=== PATIENT | male | born 1995 | race Caucasian/White ===

== ENCOUNTER 2016-10-22 18:50 | Emergency (ER) | payer OTHER ==
--- NOTE | 2016-10-22 21:13 | RAD ---
INDICATION: Back pain. COMPARISON: There are no prior studies available for comparison. TECHNIQUE: Contiguous axial sections were obtained beginning lower thoracic vertebra and continuing through the sacrum. Images were reconstructed in the sagittal and coronal planes. FINDINGS: The vertebra are in normal alignment. No fracture is seen. There is no hyperdense material in the thecal sac to indicate acute hemorrhage. Degenerative changes include loss of intervertebral disc height. There is no evidence for significant disc bulge or herniation. There is no evidence for spinal canal narrowing. At L3/L4 there is mild broad-based disc protrusion that combines with mild thickening of the ligamentum flavum to cause mild spinal stenosis. At L4/L5 there is broad-based disc protrusion neck combines with facet arthropathy and thickening of the ligamentum flavum to cause central canal stenosis and mild bilateral neural foraminal stenosis. At L5/S1 there is broad-based disc protrusion eccentric towards the left that appears to extend into the neural foramen causing at least moderate left neural foraminal stenosis. IMPRESSION: There is degenerative disc disease of the lower lumbar spine as described above with the most severe appearance at L5/S1 where the intervertebral disc appears to protrude into the left neural foramen causing at least moderate neural foraminal stenosis. Superior characterization of the soft tissues of the lumbar spine can be acquired with MRI.
[2016-10-22] MEDS ORDERED: predniSONE TAB* 20 MG PO ONE ×2 (21:31)
[2016-10-22 21:42] VITALS: BP 126/68
--- NOTE | 2016-10-22 22:32 | ED ---
Nael Fonseca Erika, scribed for Imer Stafford MD on 10/22/16 at 1952 . Complex/Multi-Sys Presentation - HPI Summary HPI Summary: Patient is a 21-year-old male presenting to the ED with a CC of paresthesias. Patient reports he was at baseline today. He ate dinner, and then, around 18:45 tonight, he suddenly felt hot. He reports his skin developed a diffuse tingling sensation. Patient states he then developed a burning pain down the posterior right leg. Pain is not aggravated by palpation. Throughout, patient states he felt "shaky." He reports he has had intermittent hip and groin pain, right worse than left, for months. Pt believes this pain is due to weight lifting and squatting, and states it is worse after he works out. Patient denies abdominal pain. He denies PMHx. - History Of Current Complaint Chief Complaint: EDGeneral Time Seen by Provider: 10/22/16 19:10 Hx Obtained From: Patient Onset/Duration: Sudden Onset, Lasting Hours - 1 hour, Still Present Timing: Constant Severity Currently: Moderate Associated Signs And Symptoms: Positive: Other - Paresthesias, posterior leg pain, "shaky". Negative: Abdominal Pain - Allergies/Home Medications Allergies/Adverse Reactions: Allergies Allergy/AdvReac Type Severity Reaction Status Date / Time No Known Allergies Allergy Verified 10/22/16 18:55 PMH/Surg Hx/FS Hx/Imm Hx Endocrine/Hematology History: Denies: Hx Diabetes Cardiovascular History: Denies: Hx Hypertension Infectious Disease History: No Infectious Disease History: Denies: Traveled Outside the [place] in Last 30 Days - Family History Known Family History: Positive: Cardiac Disease, Hypertension, Diabetes - Social History Occupation: Student Lives: With Family Alcohol Use: None Hx Substance Use: Yes Substance Use Type: Reports: Marijuana Substance Use Comment - Amount & Last Used: today Hx Tobacco Use: No Smoking Status (MU): Never Smoked Tobacco Review of Systems Constitutional: Other - "Shaky" Negative: Abdominal Pain Musculoskeletal: Other - Burning pain posterior leg Positive: Myalgia - hip and groin pain Positive: Paresthesia All Other Systems Reviewed And Are Negative: Yes Physical Exam Triage Information Reviewed: Yes Vital Signs On Initial Exam: Initial Vitals Temp Pulse Resp BP Pulse Ox 98.6 F 102 20 151/87 100 10/22/16 18:52 10/22/16 18:52 10/22/16 18:52 10/22/16 18:52 10/22/16 18:52 Vital Signs Reviewed: Yes Appearance: Positive: Well-Appearing, No Pain Distress Skin: Positive: Warm, Skin Color Reflects Adequate Perfusion, Dry Head/Face: Positive: Normal Head/Face Inspection Eyes: Positive: Normal ENT: Positive: Normal ENT inspection Neck: Positive: Supple, Nontender Respiratory/Lung Sounds: Positive: Clear to Auscultation, Breath Sounds Present Cardiovascular: Positive: Tachycardia - at 102 bpm on triage Abdomen Description: Positive: Nontender, Soft Bowel Sounds: Positive: Present Musculoskeletal: Positive: Normal, Other - Negative straight leg raise Neurological: Positive: Normal Psychiatric: Positive: Affect/Mood Appropriate - Francie Coma Scale Coma Scale Total: 15 Diagnostics - Vital Signs Vital Signs Temp Pulse Resp BP Pulse Ox 10/22/16 19:16 99.8 F 97 20 141/62 100 10/22/16 18:52 98.6 F 102 20 151/87 100 - Laboratory Lab Statement: Any lab studies that have been ordered have been reviewed, and results considered in the medical decision making process. - CT L Spine CT Interpretation Completed By: Radiologist - FINDINGS: The vertebra are in normal alignment. No fracture is seen. There is no hyperdense material in the thecal sac to indicate acute hemorrhage. Degenerative changes include loss of intervertebral disc height. There is no evidence for significant disc bulge or herniation. There is no evidence for spinal canal narrowing. At L3/L4 there is mild broad-based disc protrusion that combines with mild thickening of the ligamentum flavum to cause mild spinal stenosis. At L4/L5 there is broad-based disc protrusion neck combines with facet arthropathy and thickening of the ligamentum flavum to cause central canal stenosis and mild bilateral neural foraminal stenosis. At L5/S1 there is broad-based disc protrusion eccentric towards the left that appears to extend into the neural foramen causing at least moderate left neural foraminal stenosis. IMPRESSION: There is degenerative disc disease of the lower lumbar spine as described above with the most severe appearance at L5/S1 where the intervertebral disc appears to protrude into the left neural foramen causing at least moderate neural foraminal stenosis. Superior characterization of the soft tissues of the lumbar spine can be acquired with MRI. - EKG 18:57 Cardiac Rate: NL - at 88 bpm EKG Rhythm: Sinus Rhythm EKG Interpretation: LVH Re-Evaluation - Re-Evaluation First Eval Re-Evaluation Time: 21:28 Comment: Discussed CT results with patient and follow up plan. Patient now reports that he lifted a heavier weight today than he ever has in the past. Complex Multi-Symp Course/Dx Course Of Treatment: Mr. Bob branch lifted more weight than ever before today and later had a sudden right posterior leg burning pain with multiple other vague but severe symptoms that worried him. His CT shows a consistent L5/ S1 disc impingement on the right and I think his other symptoms represented a vagal reaction. There is no weakness associated and I will treat him with a short burst of steroids and close F/U. He may need an MRI at some point. - Diagnoses Provider Diagnoses: Sciatica of right side, Vagal reaction Discharge - Discharge Plan Condition: Stable Disposition: HOME Patient Education Materials: Sciatica (ED) Referrals: Mike HEMPHILL,William Cisneros [Primary Care Provider] - Additional Instructions: Recommend ibuprofen for the pain. The documentation as recorded by the Nael ortega Erika accurately reflects the service I personally performed and the decisions made by me, Imer Stafford MD.
== END 2016-10-22 21:41 | disposition home or self-care (01) ==
LOC: ED 18:50
DX: M54.31 Sciatica, right side (principal); R55 Syncope and collapse; M51.36 Other intervertebral disc degeneration, lumbar region
CPT/HCPCS: 72131; 93005; 99282

== ENCOUNTER 2016-11-13 08:40 | Emergency (ER) | payer OTHER ==
[2016-11-13 10:21] LABS: Hematocrit 49 % (42-52); Hemoglobin 16.3 g/dl (14.0-18.0); Mean Corpuscular HGB Conc 34 g/dl (31-36); Mean Corpuscular Hemoglobin 30 pg (27-31); Mean Corpuscular Volume 90 fL (80-94); Mean Platelet Volume 7 um3 (7.4-10.4); Red Blood Count 5.37 10^6/ul (4.0-5.4); Red Cell Distribution Width 13 % (10.5-15); White Blood Count 4.7 10^3/ul (3.5-10.8)
[2016-11-13 10:35] LABS: ALT 21 U/L (7-52); AST 26 U/L (13-39); Alkaline Phosphatase 58 U/L (34-104); Anion Gap 7 mmol/L (2-11); BUN/Creatinine Ratio 12.4 (8-20); Blood Urea Nitrogen 15 mg/dL (6-24); C Reactive Protein < 1.00 mg/L (< 5.00); CO2 Carbon Dioxide 26 mmol/L (22-32); Chloride 104 mmol/L (101-111); EGFR African American 95.6 (>60); EGFR Non-African American 74.3 (>60); Globulin 2.8 g/dL (2-4); Glucose 91 mg/dL (70-100); Lipase 18 U/L (11.0-82.0); Potassium 3.8 mmol/L (3.5-5.0); Sodium 137 mmol/L (133-145); Total Protein 7.8 g/dL (6.4-8.9)
[2016-11-13 10:43] LABS: Urine Bilirubin Negative (Negative); Urine Glucose Negative (Negative); Urine Nitrite Negative (Negative)
--- NOTE | 2016-11-13 11:00 | RAD ---
INDICATION: Right flank and groin pain COMPARISON: None TECHNIQUE: Longitudinal and transverse scans of the kidneys were obtained. FINDINGS: Kidneys: The kidneys are size. No renal masses, calculi, or hydronephrosis is seen. The echogenicity of the kidneys is near the echogenicity of the liver. Suggest correlation with renal function/urinalysis. The right kidney measures 11.2 x 6.3 x 5.6 cm and the left kidney 11.0 x 6.6 x 4.9 cm. Other: None IMPRESSION: EQUIVOCAL INCREASED ECHOGENICITY OF THE KIDNEYS REQUIRES CORRELATION WITH LABORATORY DATA. NO HYDRONEPHROSIS.
[2016-11-13 12:06] LABS: Creatine Kinase 207 U/L (10-223)
[2016-11-13] MEDS ORDERED: Sulfamethox/Trimethoprim DS 800/160* TAB PO ONE (13:38)
[2016-11-13 14:12] VITALS: BP 132/70
--- NOTE | 2016-11-13 18:06 | ED ---
Zachary Fonseca Billy, scribed for Roger Roberts MD on 11/13/16 at 0932 . Abdominal Pain/Male - HPI Summary HPI Summary: Patient is a 21 year-old male coming to [facility] for evaluation of suprapubic abdominal pain for the last few weeks. He also reports intermittent right flank pain. 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 For the last 2 nights, he has been waking up with night sweats. This morning, he woke up with bloody, maroon-colored stools. He also reports nausea but denies any vomiting or diarrhea. Furthermore, he complains of "paresthesias in random places" of his body. He subjectively feels warm. He also states that he has had intermittent numbness of his testicles as well as intermittent sharp pains with urination. He also feels like he "does not drain completely" with urination. Patient states that [facility] checked pelvic and prostate last week, unremarkable. However, his symptoms have progressed since then. - History of Current Complaint Chief Complaint: EDAbdPain Stated Complaint: BLOOD IN STOOL/NIGHT SWEATS Time Seen by Provider: 11/13/16 08:53 Hx Obtained From: Patient Onset/Duration: Gradual Onset, Lasting Weeks Timing: Constant Severity Initially: Moderate Severity Currently: Moderate Pain Intensity: 3 Pain Scale Used: 0-10 Numeric Location: Suprapubic, Flank Character: Other: - Pressure Aggravating Factor(s): Nothing Alleviating Factor(s): Nothing Associated Signs And Symptoms: Positive: Diaphoresis, Blood in Stool, Urinary Symptoms, Nausea, Other - paresthesias. Negative: Vomiting, Diarrhea - Allergies/Home Medications Allergies/Adverse Reactions: Allergies Allergy/AdvReac Type Severity Reaction Status Date / Time No Known Allergies Allergy Verified 10/22/16 18:55 PMH/Surg Hx/FS Hx/Imm Hx Endocrine/Hematology History: Denies: Hx Diabetes Cardiovascular History: Denies: Hx Hypertension Infectious Disease History: Denies: Traveled Outside the [place] in Last 30 Days - Family History Known Family History: Positive: Cardiac Disease, Hypertension, Diabetes - Social History Alcohol Use: None Hx Substance Use: Yes Substance Use Type: Reports: Marijuana Substance Use Comment - Amount & Last Used: today Hx Tobacco Use: No Smoking Status (MU): Never Smoked Tobacco Review of Systems Positive: Skin Diaphoresis. Negative: Fever - subjectively feels warm with no recorded fever, Chills Negative: Erythema Negative: Ear Ache Negative: Chest Pain Negative: Shortness Of Breath, Cough Gastrointestinal: Other - bloody stool Positive: Abdominal Pain, Nausea. Negative: Vomiting, Diarrhea Genitourinary: Other - See HPI Positive: flank pain Negative: Myalgia, Edema Negative: Rash Positive: Paresthesia All Other Systems Reviewed And Are Negative: Yes Physical Exam - Summary Physical Exam Summary: Constitutional: Well-developed, Well-nourished, Alert. (-) Distressed Skin: Warm, Dry HENT: Normocephalic; Atraumatic Eyes: Conjunctiva normal Neck: Musculoskeletal ROM normal neck. (-) JVD, (-) Stridor, (-) Tracheal deviation Cardio: Rhythm regular, rate normal, Heart sounds normal; Intact distal pulses; The pedal pulses are 2+ and symmetric. Radial pulses are 2+ and symmetric. (-) Murmur Pulmonary/Chest wall: Effort normal. (-) Respiratory distress, (-) Wheezes, (-) Rales Abd: Soft, (-) Tenderness, (-) Distension, (-) Guarding, (-) Rebound Pelvic: Prostate of normal size today, uninfected, nontender, not boggy. No hernias. No testicular tenderness. Testes vertical. Musculoskeletal: (-) Edema Lymph: (-) Cervical adenopathy Neuro: Alert, Oriented x3 Psych: Mood and affect Normal Triage Information Reviewed: Yes Vital Signs On Initial Exam: Initial Vitals Temp Pulse Resp BP Pulse Ox 97.8 F 86 18 143/80 100 11/13/16 08:44 11/13/16 08:44 11/13/16 08:44 11/13/16 08:44 11/13/16 08:44 Vital Signs Reviewed: Yes Diagnostics - Vital Signs Vital Signs Temp Pulse Resp BP Pulse Ox 11/13/16 08:44 97.8 F 86 18 143/80 100 - Laboratory Result Diagrams: 11/13/16 10:00 11/13/16 10:00 Lab Statement: Any lab studies that have been ordered have been reviewed, and results considered in the medical decision making process. - Ultrasound No standard instances Ultrasound Interpretation Completed By: Radiologist - Renal ultrasound: EQUIVOCAL INCREASED ECHOGENICITY OF THE KIDNEYS REQUIRES CORRELATION WITH LABORATORY DATA. NO HYDRONEPHROSIS. 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 Renal US shows no hydronephrosis, findings as read by the radiologist. Patient care was discussed with Dr. Pulido, who recommended that the patient be placed on 10 days of Bactrim for possible prostatitis despite a normal prostate exam. Care was also discussed with Dr. Cooney of the [facility] at [employer] [facility], who agreed to arrange for a follow-up urology visit in [place]. Patient will be discharged home with Bactrim. All medications were reviewed this visit. - Diagnoses Provider Diagnoses: Renal insufficiency, Suprapubic pain, urinary symptoms - Provider Notifications Discussed Care Of Patient With: Dr. Wetzel (radiology) at 1130: discussed the renal US findings. Patient has no signs of pyelonephritis. Dr. Pulido ( urology) at 1330: recommended bactrim for 10 days for possible prostatitis despite the normal prostate exam. The patient can be seen in the office although his insurance may not cover the visit. Dr. Cooney (Critical access hospital) at 1350: she has agreed to call the patient to schedule a follow up at the [facility]. She also agrees to arrange for the patient to see a urologist in [place]. Discharge - Discharge Plan Condition: Stable Disposition: HOME Prescriptions: Sulfamethox/Trimethoprim DS* [Bactrim DS 800/160 TAB*] 1 tab PO BID #14 tab Patient Education Materials: Abdominal Pain (ED), Prostatitis (ED) Referrals: [facility] @ [Outside] Mike HEMPHILL,William Cisneros [Primary Care Provider] - Jonathan Pulido MD [Medical Doctor] - The documentation as recorded by the Zachary ortega Billy accurately reflects the service I personally performed and the decisions made by , Roger Roberts MD.
== END 2016-11-13 14:10 | disposition home or self-care (01) ==
LOC: ED 08:40
DX: N28.9 Disorder of kidney and ureter, unspecified (principal); R10.30 Lower abdominal pain, unspecified; R30.0 Dysuria; R61 Generalized hyperhidrosis; K92.1 Melena; R20.2 Paresthesia of skin; F12.90 Cannabis use, unspecified, uncomplicated
CPT/HCPCS: 36415; 76775; 80053; 81003; 82550; 83605; 83690; 85025; 86140; 87491; 87591; 99283; A9270-GY